=== PATIENT | female | born 1990 | race American Indian/Alaskan Native ===

== ENCOUNTER 2020-04-11 19:32 | Emergency (ER) | payer OTHER ==
[~2020-04-11] VITALS: Ht 170.2 cm; Wt 76.2 kg
[2020-04-11 19:43] VITALS: BP 125/83; Ht 170.2 cm; Wt 76.2 kg
== END 2020-04-11 21:52 | disposition home or self-care (01) ==
LOC: ED 19:32
DX: R51.9 Headache, unspecified (principal); H57.11 Ocular pain, right eye